=== PATIENT | male | born 1965 | race Caucasian/White ===

== ENCOUNTER → 2018-02-13 | Outpatient (CLI) | payer OTHER ==
--- NOTE | 2018-02-14 06:29 | PAP/PSG TECHNICIAN REPORT ---
[facility] Casualty Claims Supervisor Polysomnogram Report Study name: None Report date: 02/14/2018 Study date: 02/13/2018 Referring Physician: Dr. Deisy Russ M.D. Name: LA NENA MARCUM Interpreting Physician: Deisy Russ M.D. Date of : 1965 Casualty Claims Supervisor: Tanvi Reyes RPS. Sex: Male Age: 52 Study Type: PSG Weight: 213 lbs Height: 52 years, Height 6' 1" BMI: 28.1 Medications: ZOLPIDEM 10 MG Patient History 52 yr-old male here for a baseline study. He has a history of frequent awakenings, daytime sleepiness, and a need for naps. His Baker scale is 8. The test was started on room air. ETCO2 testing is included in this study. Room 3 Parameters Monitored NPSG: E1-M2, E2-M1, Fp1-M2, Fp2-M1, F3-M2, F4-M2, F4-M1, C3-M2, C4-M2, C4-M1, O1-M2, O2-M2, O2-M1, T3-M2, T4-M1, P3-M2, P4-M1, CHIN1, CHIN2, HR, EKG, Legs, PFLOW, SNOR, FLOW, CFLOW, Tidal Volume, THOR, ABDO, SpO2, PLTH, CPRESS, ETCO2 Wave, ETCO2, pH Sleep Architecture Sleep Stages Time at Lights Off 10:54:07 PM STAGES Time (min.) TST (%) Time at Lights On 5:23:07 AM Wake 42.5 -- Total Recording Time (TRT) 389.00 min. N1 39.0 11 Total Sleep Period (TSP) 369.0 min. N2 210.5 61 Total Sleep Time (TST) 346.5min. N3 58.0 17 Awake Time 42.5 min. REM 39.0 11 Wake after Sleep Onset 22.5 min. Sleep Efficiency (SE) 89 % Sleep Onset Latency (DARLEEN) 20.0 min. Number of Stage 1 Shifts None Awakenings 23 Stage Changes 100 Number of REM periods 3 REM 39.0 11 REM Latency 105.5 min. NREM 307.5 89 Body Position Analysis Supine Right Left Side Prone Vertical Total Sleep Time (min.) 22.9 184.6 145.9 330.49 0.0 0.0 Total Sleep Time (%) 5% 53% 42% 95 0% N/A% Total Sleep Time REM (min.) 0.0 31.0 8.0 None 0.0 0.0 Total Sleep Time NREM (min.) 16.0 153.6 137.9 None 0.0 0.0 Intermittent Wake (min.) 6.9 12.4 23.2 None 0.0 0.0 Total Sleep Period (%) 5% None None None None None Arousals Myoclonus (PLM) * Events Count Index Events Count Index Spontaneous 38 7 Events Awake (PLMW) 90 127.1 Respiratory 2 0.3 Events Asleep w/ Arousal (PLMA) 32 5.5 PLM 30 6 Events Asleep w/o Arousal (PLMS) 127 22.0 Snoring 3 1 Total Asleep 159 27.5 Total 73 13 Total 249 38 Respiratory Analysis * CA OA MA CH H RERA Total Count 3 0 0 0 6 0 9 Index 0.5 0.0 0.0 0 1.0 0 1.6 Mean Duration 13.5 0.0 0.0 0.00 17.2 0.0 15.9 Longest Duration 15.4 0.0 0.0 0.00 0.0 0.0 19.4 Respiratory Event Summary Total Supine ~Supine Right Left Prone REM NREM Apneas Count 3 1 2 2 0 N/A 0 3 Index 0.5 4 0 0.7 0.0 N/A 0 1 Hypopneas (4% Desat) Count 6 2 4 3 1 N/A 1 5 Index 1.0 7.5 1 1.0 0.4 N/A 1.5 1.0 Apneas & All Hypopneas Count 9 3 6 5 1 N/A 1 8 Index 1.6 11 1 2 0 N/A 1.5 1.6 Respiratory Events (Protective Service Specialist+All Hyp+RERA) Count 9 3 6 5 1 N/A 1 8 Index 1.6 11 1 1.6 0.4 N/A 1.5 1.6 Respiratory Related Arousal Count 2 3 1 1 0 N/A 0 2 Index 0.3 4 0 0 0 N/A 0 0 Snoring Analysis Supine Right Left Prone REM NREM Total Snore duration 2.2 min Snores count 10 43 32 N/A 2 83 85 Snore mean duration 1.6 Sec Snores index 37 14 13 N/A 3.1 16.2 14.7 TST with snoring (%) 0.6% SpO2 Analysis Total REM NREM Awake <50% 0.0 min. 0.0 min. 0.0 min. 0.0 min. 51 - 60% 0.0 min. 0.0 min. 0.0 min. 0.0 min. 61 - 70% 0.0 min. 0.0 min. 0.0 min. 0.0 min. 71 - 80% 0.0 min. 0.0 min. 0.0 min. 0.0 min. 81 - 90% 0.3 min. 0.0 min. 0.2 min. 0.2 min. 91 - 100% 388.7 min. 39.0 min. 307.4 min. 42.3 min. Average 95 95 95 96 Minimum SpO2 89 92 89 89 Desaturation Event Index 4.0 3.1 3.3 11.3 # Desat. Events below 89% N/A N/A N/A N/A Time(%) with Saturation below 89% 0.0 0.0 0.0 0.0 Time(min.) with Saturation below 89% 0.0 0.0 0.0 0.0 Heart Rate Analysis End Tidal CO2 Analysis Min (bpm) Max (bpm) Average (bpm) TSP (mins) % of TSP Awake 52 100 64 Above 55 mmHg 0.0 0.0 NREM 47 91 56 50-55 mmHg 0.0 0.0 REM 43 76 59 45-50 mmHg 0.0 0.0 Overall 43 91 56 40-45 mmHg 0.1 0.0 35-40 mmHg 92.4 26.7 30-35 mmHg 31.2 9.0 Average ETCO2 0.1 Supplemental O2 Values Minimum O2 level: None Value Start Time End Time Casualty Claims Supervisor Comments Mr. Marcum slept in the right, left, and supine positions. Occasional cardiac arrhythmias were noted (please refer to the printout). PLMs were noted. No bruxism noted. Snoring was noted and scored as a 1 on a scale of 1 through 5. (0=no snoring, 5=snoring loud enough to be heard through a closed door or down the [address]). His AHI was 1.6. He did not wake up to use the restroom during the night. Mr. Marcum stated that he woke up less than usual. The final report will be interpreted and signed by a sleep physician. The completed physician report will then be placed in the patient medical record. Therapy (cm H2O) 0 TIB (min.) 389.0 TST (min.) 346.5 Sleep Onset (min.) 20.0 REM Onset From Sleep (min.) 105.5 Sleep Efficiency % 89 Wakefulness (%) 11 Wakefulness (min.) 42.5 NREM 1 (%) 11 NREM 1 (min.) 39.0 NREM 2 (%) 61 NREM 2 (min.) 210.5 NREM 3 (%) 17 NREM 3 (min.) 58.0 REM (%) 11 REM (min.) 39.0 # Arousals 73 Arousal Index 13 # Snore 85 Snore Index 14.7 AHI 1.6 AHI Supine 11 AHI Non-Supine 1 NREM AHI 1.6 REM AHI 1.5 RDI 1.6 # Obstructive Apnea 0 # Central Apnea 3 # Mixed Apnea 0 # Hypopneas 6 RERAs 0 Total Respiratory Events 11 Time Below SpO2 89% (min.) 0.0 Mean NREM SpO2 (%) 95 Mean REM SpO2 (%) 95 Mean Sleep SpO2 (%) 95 Min NREM SpO2 (%) 89 Min REM SpO2 (%) 92 Position Supine (min.) 22.9 Position Non-supine (min.) 330.5 LM Index Sleep 27.5 LM Index NREM 29.7 LM Index REM 10.8 Mean Heart Rate (bpm) 56 Min Heart Rate (bpm) 43
== END | disposition home or self-care (01) ==
LOC: C.NEUR 20:00
PROVIDERS: ATTEND Internal Medicine
DX: G47.33 Obstructive sleep apnea (adult) (pediatric) (principal)